=== PATIENT | male | born 1980 | race Caucasian/White ===

== ENCOUNTER 2018-01-31 20:50 | Emergency (ER) | payer SELFPAY ==
[2018-01-31] MEDS ORDERED: BACIGUENT PACKET ONE (21:13)
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
[2018-01-31 21:24] VITALS: O2SAT 98
[2018-01-31] MEDS ORDERED: KEFLEX 500 MG PO ONE (21:27)
[2018-01-31] MEDS ORDERED: Adacel Vial IM ONE ×2 (21:27→21:36)
[2018-01-31] MEDS ORDERED: KEFLEX 500 MG ONE (21:33)
[2018-01-31 22:00] VITALS: BP 128/79; PULSE 87
== END 2018-01-31 21:56 | disposition home or self-care (01) ==
LOC: ED 20:50
PROC: 0HQCXZZ Repair Left Upper Arm Skin, External Approach (ICD-10-PCS; principal; 2018-01-31)
DX: S41.112A Laceration without foreign body of left upper arm, initial encounter (principal); X99.1XXA Assault by knife, initial encounter
CPT/HCPCS: 12004; 90471; 90715; 99283; A9270-GY

== ENCOUNTER 2018-05-02 13:34 | Emergency (ER) | payer OTHER ==
--- NOTE | 2018-05-02 13:50 | ERPHSYRPT ---
- History of Present Illness Time Seen by Provider: 05/02/18 13:49 Source: patient Exam Limitations: no limitations Physician History: 37 y/o white male presents with 4 day h/o facial rash starting after stung by insect behind left ear. rash spread from left to right. 2 hours waitstaff captain rash worsened but present on face. no respiratory sx. no known new exposures. took 50mg oral benadryl waitstaff captain. never had before. no known drug or food allergies. Timing/Duration: day(s) (4) Quality: itchy Location: face Possible Causes: no cause identified Associated Symptoms: change in skin texture, hives, rash Allergies/Adverse Reactions: No Known Drug Allergies Allergy (Verified 05/02/18 13:50) Hx Tetanus, Diphtheria Vaccination/Date Given: (unsure) Hx Influenza Vaccination/Date Given: No Hx Pneumococcal Vaccination/Date Given: No - Review of Systems Constitutional: No Symptoms Eyes: No Symptoms Ears, Nose, & Throat: No Symptoms Respiratory: No Symptoms Cardiac: No Symptoms Abdominal/Gastrointestinal: No Symptoms Genitourinary Symptoms: No Symptoms Musculoskeletal: No Symptoms Skin: Pruritis, Rash Neurological: No Symptoms Psychological: No Symptoms Endocrine: No Symptoms Hematologic/Lymphatic: No Symptoms Immunological/Allergic: No Symptoms All Other Systems: Reviewed and Negative - Past Medical History Pertinent Past Medical History: Yes Neurological History: No Pertinent History ENT History: No Pertinent History Cardiac History: No Pertinent History Respiratory History: No Pertinent History Endocrine Medical History: No Pertinent History Musculoskeletal History: No Pertinent History GI Medical History: No Pertinent History History: No Pertinent History Psycho-Social History: No Pertinent History Male Reproductive Disorders: No Pertinent History - Past Surgical History Past Surgical History: No Neuro Surgical History: No Pertinent History Cardiac: No Pertinent History Respiratory: No Pertinent History Gastrointestinal: No Pertinent History Genitourinary: No Pertinent History Musculoskeletal: No Pertinent History Male Surgical History: No Pertinent History - Social History Smoking Status: Current every day smoker Exposure to second hand smoke: No Drug Use: none Patient Lives Alone: No - Nursing Vital Signs Nursing Vital Signs: Initial Vital Signs Temperature 98.6 F 05/02/18 13:37 Pulse Rate 120 H 05/02/18 13:37 Respiratory Rate 20 05/02/18 13:37 Blood Pressure 168/122 05/02/18 13:37 O2 Sat by Pulse Oximetry 96 05/02/18 13:37 Pain Scale Pain Intensity 0 - Physical Exam General Appearance: no apparent distress, alert, anxiety Eye Exam: PERRL/EOMI, eyes nml inspection Ears, Nose, Throat Exam: normal ENT inspection, moist mucous membranes Neck Exam: normal inspection, non-tender, supple, full range of motion Respiratory Exam: normal breath sounds, lungs clear, airway intact, No chest tenderness, No respiratory distress, No accessory muscle use, No rhonchi, No wheezing, No stridor Cardiovascular Exam: regular rate/rhythm, normal heart sounds, normal peripheral pulses Gastrointestinal/Abdomen Exam: soft, normal bowel sounds, No tenderness, No distention, No guarding, No rebound Rectal Exam: not done Back Exam: normal inspection, normal range of motion, No CVA tenderness, No vertebral tenderness Extremity Exam: normal inspection, normal range of motion, pelvis stable Neurologic Exam: alert, oriented x 3, cooperative, semiconductor technician II-XII nml as tested Skin Exam: rash, other (generalized hives) Lymphatic Exam: No adenopathy SpO2 Interpretation: normal - Course Nursing assessment & vital signs reviewed: Yes Ordered Tests: Medication Summary Discontinued Medications Generic Name Dose Route Start Last Admin Trade Name Freq PRN Reason Stop Dose Admin Ceftriaxone Sodium 1,000 mg 05/02/18 14:08 Rocephin 1000 Mg Inj IM 05/02/18 14:09 STAT ONE Ceftriaxone Sodium Confirm 05/02/18 14:16 Rocephin 1000 Mg Inj Administered 05/02/18 14:17 Dose 1,000 mg .ROUTE .STK-MED ONE Lidocaine HCl Confirm 05/02/18 14:16 Xylocaine 1% Hcl 20 Ml Mdv Administered 05/02/18 14:17 Dose 3 ml .ROUTE .STK-MED ONE Methylprednisolone Sodium Succinate 125 mg 05/02/18 14:08 Solu-Medrol 125 Mg IM 05/02/18 14:09 STAT ONE Methylprednisolone Sodium Succinate Confirm 05/02/18 14:16 Solu-Medrol 125 Mg Administered 05/02/18 14:17 Dose 125 mg .ROUTE .STK-MED ONE - Progress Progress: unchanged Counseled pt/family regarding: diagnosis, need for follow-up - Departure Time of Disposition: 14:20 Departure Disposition: Home Clinical Impression: Hives Condition: Stable Critical Care Time: No Referrals: DOCTOR,NO FAMILY [Primary Care Provider] - Additional Instructions: keep face clean daily. add benadryl 25mg orally 3 times daily for 4 days. follow up with primary doctor for further management Prescriptions: Methylprednisolone Packet [Medrol Dosepack] 4 mg PO UD #1 packet Smz/Tmp Ds Tablet [Bactrim Ds Tablet] 1 udtab PO BID #14 tablet
[2018-05-02] MEDS ORDERED: Rocephin 1000 MG INJ IM ONE (14:08)
[2018-05-02] MEDS ORDERED: solu-MEDROL 125 MG IM ONE (14:08)
[2018-05-02] MEDS ORDERED: Rocephin 1000 MG INJ ONE (14:16)
[2018-05-02] MEDS ORDERED: XYLOCAINE 1% HCL 20 ML MDV ONE (14:16)
[2018-05-02] MEDS ORDERED: solu-MEDROL 125 MG ONE (14:16)
[2018-05-02 14:47] VITALS: BP 160/113; PULSE 76; O2SAT 96
== END 2018-05-02 14:47 | disposition home or self-care (01) ==
LOC: ED 13:34
DX: L50.9 Urticaria, unspecified (principal)
CPT/HCPCS: 96372; 99284; J0696; J2930